=== PATIENT | male | born 1965 | race Caucasian/White ===

== ENCOUNTER 2020-09-18 15:43 | Inpatient (IN) | payer OTHER, BC ==
[2020-09-18] MEDS ORDERED: Senokot S 8.6-50 MG TAB PO PRN (17:55)
[2020-09-18] MEDS ORDERED: Ibuprofen 400 MG TAB PO PRN (17:59)
[2020-09-18] MEDS: Acetaminophen 325 MG TAB PO SCH ×2 (18:14→23:40)
[2020-09-18] MEDS: traMADol HCl 50 MG TAB PO PRN (18:55)
[2020-09-18] MEDS: Pregabalin 75 MG CAP PO SCH (20:33)
[2020-09-18] MEDS: Cyclobenzaprine 10 MG TAB PO PRN (23:45)
[2020-09-19] MEDS: traMADol HCl 50 MG TAB PO PRN ×3 (01:38→20:42)
[2020-09-19] MEDS: Acetaminophen 325 MG TAB PO SCH ×3 (05:33→17:44)
[2020-09-19] MEDS: Polyethylene Glycol 3350 17 GM Packet PO SCH (08:35)
[2020-09-19] MEDS: Pregabalin 75 MG CAP PO SCH ×2 (08:35→20:36)
[2020-09-19] MEDS: Triamterene/Hydrochlorothiazide 37.5 mg/25 mg Tablet PO SCH (08:36)
[2020-09-19] MEDS: Amlodipine 5 MG TAB PO SCH (08:36)
[2020-09-19] MEDS: Cyclobenzaprine 10 MG TAB PO PRN (11:58)
[2020-09-19] MEDS: Ibuprofen 400 MG TAB PO SCH ×2 (14:18→21:56)
[2020-09-20] MEDS: Acetaminophen 325 MG TAB PO SCH ×4 (00:32→17:51)
[2020-09-20] MEDS: traMADol HCl 50 MG TAB PO PRN ×3 (04:27→22:00)
[2020-09-20] MEDS: Ibuprofen 400 MG TAB PO SCH ×3 (05:45→21:59)
[2020-09-20] MEDS: Amlodipine 5 MG TAB PO SCH (08:44)
[2020-09-20] MEDS: Polyethylene Glycol 3350 17 GM Packet PO SCH (08:44)
[2020-09-20] MEDS: Pregabalin 75 MG CAP PO SCH ×2 (08:45→20:53)
[2020-09-20] MEDS: Triamterene/Hydrochlorothiazide 37.5 mg/25 mg Tablet PO SCH (08:45)
[2020-09-20] MEDS: TUMERIC 1000 MG PO SCH (08:46)
[2020-09-20] MEDS: MULTIVITAMIN TABLET PO SCH (08:46)
[2020-09-20] MEDS: METHYLFOLATE PO SCH (08:47)
[2020-09-20] MEDS: FISH OIL 1000 MG PO SCH (08:47)
[2020-09-20] MEDS: Cyclobenzaprine 10 MG TAB PO PRN (17:51)
[2020-09-21] MEDS: Acetaminophen 325 MG TAB PO SCH ×4 (00:49→17:52)
[2020-09-21] MEDS: Cyclobenzaprine 10 MG TAB PO PRN ×3 (03:12→22:10)
[2020-09-21] MEDS: traMADol HCl 50 MG TAB PO PRN ×3 (04:23→17:56)
[2020-09-21] MEDS: Ibuprofen 400 MG TAB PO SCH ×3 (05:35→22:09)
[2020-09-21] MEDS: Triamterene/Hydrochlorothiazide 37.5 mg/25 mg Tablet PO SCH (08:17)
[2020-09-21] MEDS: Amlodipine 5 MG TAB PO SCH (08:17)
[2020-09-21] MEDS: Pregabalin 75 MG CAP PO SCH ×2 (08:18→20:31)
[2020-09-21] MEDS: METHYLFOLATE PO SCH (09:28)
[2020-09-21] MEDS: FISH OIL 1000 MG PO SCH (09:28)
[2020-09-21] MEDS: MULTIVITAMIN TABLET PO SCH (09:29)
[2020-09-21] MEDS: TUMERIC 1000 MG PO SCH (09:29)
[2020-09-21] MEDS: Polyethylene Glycol 3350 17 GM Packet PO SCH (09:29)
[2020-09-22] MEDS: Acetaminophen 325 MG TAB PO SCH ×4 (00:48→17:10)
[2020-09-22] MEDS: traMADol HCl 50 MG TAB PO PRN ×3 (00:49→22:24)
[2020-09-22] MEDS: Ibuprofen 400 MG TAB PO SCH ×3 (05:46→22:23)
[2020-09-22] MEDS: Cyclobenzaprine 10 MG TAB PO PRN ×2 (08:39→16:19)
[2020-09-22] MEDS: Amlodipine 5 MG TAB PO SCH (08:39)
[2020-09-22] MEDS: Pregabalin 75 MG CAP PO SCH ×2 (08:39→20:38)
[2020-09-22] MEDS: Triamterene/Hydrochlorothiazide 37.5 mg/25 mg Tablet PO SCH (08:40)
[2020-09-22] MEDS: Polyethylene Glycol 3350 17 GM Packet PO SCH (08:40)
[2020-09-22] MEDS: FISH OIL 1000 MG PO SCH (08:47)
[2020-09-22] MEDS: METHYLFOLATE PO SCH (08:48)
[2020-09-22] MEDS: MULTIVITAMIN TABLET PO SCH (08:49)
[2020-09-22] MEDS: TUMERIC 1000 MG PO SCH (08:49)
[2020-09-23] MEDS: Cyclobenzaprine 10 MG TAB PO PRN ×2 (00:26→08:01)
[2020-09-23] MEDS: Acetaminophen 325 MG TAB PO SCH ×4 (00:26→17:10)
[2020-09-23] MEDS: Ibuprofen 400 MG TAB PO SCH ×3 (05:30→22:34)
[2020-09-23] MEDS: Pregabalin 75 MG CAP PO SCH ×2 (08:01→20:22)
[2020-09-23] MEDS: Polyethylene Glycol 3350 17 GM Packet PO SCH (08:02)
[2020-09-23] MEDS: Amlodipine 5 MG TAB PO SCH (08:02)
[2020-09-23] MEDS: TUMERIC 1000 MG PO SCH (08:09)
[2020-09-23] MEDS: FISH OIL 1000 MG PO SCH (08:09)
[2020-09-23] MEDS: METHYLFOLATE PO SCH (08:09)
[2020-09-23] MEDS: CETIRIZINE 10 MG PO SCH (08:10)
[2020-09-23] MEDS: MULTIVITAMIN TABLET PO SCH (08:10)
[2020-09-23] MEDS: Triamterene/Hydrochlorothiazide 37.5 mg/25 mg Tablet PO SCH (08:12)
[2020-09-23] MEDS: traMADol HCl 50 MG TAB PO PRN ×2 (09:53→17:16)
[2020-09-24] MEDS: Acetaminophen 325 MG TAB PO SCH ×4 (00:41→17:37)
[2020-09-24] MEDS: Cyclobenzaprine 10 MG TAB PO PRN (00:41)
[2020-09-24] MEDS: traMADol HCl 50 MG TAB PO PRN ×3 (00:42→21:31)
[2020-09-24] MEDS: Ibuprofen 400 MG TAB PO SCH ×3 (05:35→21:30)
[2020-09-24] MEDS: Triamterene/Hydrochlorothiazide 37.5 mg/25 mg Tablet PO SCH ×2 (08:21→08:22)
[2020-09-24] MEDS: Pregabalin 75 MG CAP PO SCH ×2 (08:21→20:03)
[2020-09-24] MEDS: Polyethylene Glycol 3350 17 GM Packet PO SCH (08:22)
[2020-09-24] MEDS: Amlodipine 5 MG TAB PO SCH (08:22)
[2020-09-24] MEDS: MULTIVITAMIN TABLET PO SCH (09:00)
[2020-09-24] MEDS: TUMERIC 1000 MG PO SCH (09:00)
[2020-09-24] MEDS: CETIRIZINE 10 MG PO SCH (09:00)
[2020-09-24] MEDS: METHYLFOLATE PO SCH (09:00)
[2020-09-24] MEDS: FISH OIL 1000 MG PO SCH (09:00)
[2020-09-25] MEDS: Ibuprofen 400 MG TAB PO SCH ×3 (05:24→22:44)
[2020-09-25] MEDS: Acetaminophen 325 MG TAB PO SCH ×4 (05:24→17:41)
[2020-09-25] MEDS: Pregabalin 75 MG CAP PO SCH ×2 (08:16→20:18)
[2020-09-25] MEDS: Polyethylene Glycol 3350 17 GM Packet PO SCH (08:17)
[2020-09-25] MEDS: Amlodipine 5 MG TAB PO SCH (08:17)
[2020-09-25] MEDS: traMADol HCl 50 MG TAB PO PRN ×2 (08:20→22:40)
[2020-09-25] MEDS: Cyclobenzaprine 10 MG TAB PO PRN ×2 (08:21)
[2020-09-25] MEDS: CETIRIZINE 10 MG PO SCH (08:21)
[2020-09-25] MEDS: MULTIVITAMIN TABLET PO SCH (08:21)
[2020-09-25] MEDS: FISH OIL 1000 MG PO SCH (08:21)
[2020-09-25] MEDS: TUMERIC 1000 MG PO SCH (08:21)
[2020-09-25] MEDS: METHYLFOLATE PO SCH (08:21)
[2020-09-25 09:33] VITALS: BMI 26.6
[2020-09-26] MEDS: Acetaminophen 325 MG TAB PO SCH ×4 (00:10→18:14)
[2020-09-26] MEDS: Cyclobenzaprine 10 MG TAB PO PRN ×3 (00:10→22:13)
[2020-09-26] MEDS: Ibuprofen 400 MG TAB PO SCH ×3 (06:12→22:12)
[2020-09-26] MEDS: traMADol HCl 50 MG TAB PO PRN ×2 (06:13→18:15)
[2020-09-26] MEDS: Triamterene/Hydrochlorothiazide 37.5 mg/25 mg Tablet PO SCH (08:04)
[2020-09-26] MEDS: Amlodipine 5 MG TAB PO SCH (08:04)
[2020-09-26] MEDS: CETIRIZINE 10 MG PO SCH (08:04)
[2020-09-26] MEDS: Pregabalin 75 MG CAP PO SCH ×2 (08:04→20:03)
[2020-09-26] MEDS: METHYLFOLATE PO SCH (08:04)
[2020-09-26] MEDS: TUMERIC 1000 MG PO SCH (08:05)
[2020-09-26] MEDS: MULTIVITAMIN TABLET PO SCH (08:05)
[2020-09-26] MEDS: FISH OIL 1000 MG PO SCH (08:05)
[2020-09-26] MEDS: Polyethylene Glycol 3350 17 GM Packet PO SCH (08:06)
[2020-09-26] MEDS ORDERED: traMADol HCl 50 MG TAB PO SCH (11:00)
[2020-09-27] MEDS: traMADol HCl 50 MG TAB PO PRN ×2 (00:11→22:17)
[2020-09-27] MEDS: Acetaminophen 325 MG TAB PO SCH ×3 (00:11→13:13)
[2020-09-27] MEDS: Ibuprofen 400 MG TAB PO SCH (05:29)
[2020-09-27] MEDS: Pregabalin 75 MG CAP PO SCH (08:46)
[2020-09-27] MEDS: TUMERIC 1000 MG PO SCH (08:47)
[2020-09-27] MEDS: Amlodipine 5 MG TAB PO SCH (08:47)
[2020-09-27] MEDS: Triamterene/Hydrochlorothiazide 37.5 mg/25 mg Tablet PO SCH (08:47)
[2020-09-27] MEDS: METHYLFOLATE PO SCH (08:48)
[2020-09-27] MEDS: Polyethylene Glycol 3350 17 GM Packet PO SCH (08:48)
[2020-09-27] MEDS: MULTIVITAMIN TABLET PO SCH (08:48)
[2020-09-27] MEDS: CETIRIZINE 10 MG PO SCH (08:48)
[2020-09-27] MEDS: FISH OIL 1000 MG PO SCH (08:49)
[2020-09-27] MEDS ORDERED: Acetaminophen 325 MG TAB PO PRN (12:32)
[2020-09-27] MEDS ORDERED: Ibuprofen 400 MG TAB PO PRN (12:33)
[2020-09-27] MEDS: Cyclobenzaprine 10 MG TAB PO PRN (22:18)
[2020-09-28] MEDS: traMADol HCl 50 MG TAB PO PRN ×2 (04:20→22:00)
[2020-09-28] MEDS: Polyethylene Glycol 3350 17 GM Packet PO SCH (08:32)
[2020-09-28] MEDS: Triamterene/Hydrochlorothiazide 37.5 mg/25 mg Tablet PO SCH (08:32)
[2020-09-28] MEDS: Cyclobenzaprine 10 MG TAB PO PRN ×2 (08:33→22:00)
[2020-09-28] MEDS: Amlodipine 5 MG TAB PO SCH (08:33)
[2020-09-28] MEDS: FISH OIL 1000 MG PO SCH (08:35)
[2020-09-28] MEDS: METHYLFOLATE PO SCH (08:36)
[2020-09-28] MEDS: CETIRIZINE 10 MG PO SCH (08:36)
[2020-09-28] MEDS: MULTIVITAMIN TABLET PO SCH (08:37)
[2020-09-28] MEDS: TUMERIC 1000 MG PO SCH (08:37)
[2020-09-28] MEDS ORDERED: Pregabalin 75 MG CAP PO SCH (09:00)
[2020-09-28] MEDS: Pregabalin 75 MG CAP PO SCH ×2 (19:40→20:21)
[2020-09-28] MEDS: Acetaminophen 325 MG TAB PO PRN (19:41)
[2020-09-29] MEDS: traMADol HCl 50 MG TAB PO PRN ×2 (05:36→22:00)
[2020-09-29] MEDS: Cyclobenzaprine 10 MG TAB PO PRN ×2 (05:36→22:00)
[2020-09-29] MEDS: Amlodipine 5 MG TAB PO SCH (08:40)
[2020-09-29] MEDS: METHYLFOLATE PO SCH (08:40)
[2020-09-29] MEDS: Triamterene/Hydrochlorothiazide 37.5 mg/25 mg Tablet PO SCH (08:40)
[2020-09-29] MEDS: TUMERIC 1000 MG PO SCH (08:41)
[2020-09-29] MEDS: CETIRIZINE 10 MG PO SCH (08:41)
[2020-09-29] MEDS: FISH OIL 1000 MG PO SCH (08:41)
[2020-09-29] MEDS: Polyethylene Glycol 3350 17 GM Packet PO SCH (08:42)
[2020-09-29] MEDS: MULTIVITAMIN TABLET PO SCH (08:42)
[2020-09-29] MEDS: Acetaminophen 325 MG TAB PO PRN (14:02)
[2020-09-29] MEDS: Pregabalin 75 MG CAP PO SCH (21:02)
[2020-09-30] MEDS: traMADol HCl 50 MG TAB PO PRN ×3 (04:34→21:31)
[2020-09-30] MEDS: TUMERIC 1000 MG PO SCH (07:54)
[2020-09-30] MEDS: CETIRIZINE 10 MG PO SCH (07:54)
[2020-09-30] MEDS: MULTIVITAMIN TABLET PO SCH (07:54)
[2020-09-30] MEDS: FISH OIL 1000 MG PO SCH (07:54)
[2020-09-30] MEDS: METHYLFOLATE PO SCH (07:54)
[2020-09-30] MEDS: Amlodipine 5 MG TAB PO SCH (07:55)
[2020-09-30] MEDS: Triamterene/Hydrochlorothiazide 37.5 mg/25 mg Tablet PO SCH (07:55)
[2020-09-30] MEDS: Polyethylene Glycol 3350 17 GM Packet PO SCH (07:56)
[2020-09-30] MEDS: Pregabalin 75 MG CAP PO SCH (21:30)
[2020-09-30] MEDS: Cyclobenzaprine 10 MG TAB PO PRN (21:31)
[2020-10-01] MEDS: Polyethylene Glycol 3350 17 GM Packet PO SCH (07:55)
[2020-10-01] MEDS: traMADol HCl 50 MG TAB PO PRN ×2 (07:56→22:49)
[2020-10-01] MEDS: Triamterene/Hydrochlorothiazide 37.5 mg/25 mg Tablet PO SCH (07:57)
[2020-10-01] MEDS: Amlodipine 5 MG TAB PO SCH (07:57)
[2020-10-01] MEDS: METHYLFOLATE PO SCH (08:01)
[2020-10-01] MEDS: FISH OIL 1000 MG PO SCH (08:01)
[2020-10-01] MEDS: CETIRIZINE 10 MG PO SCH (08:01)
[2020-10-01] MEDS: MULTIVITAMIN TABLET PO SCH (08:01)
[2020-10-01] MEDS: TUMERIC 1000 MG PO SCH (08:02)
[2020-10-01] MEDS: Pregabalin 75 MG CAP PO SCH (20:37)
[2020-10-01] MEDS: Cyclobenzaprine 10 MG TAB PO PRN (22:48)
[2020-10-02] MEDS: traMADol HCl 50 MG TAB PO PRN ×2 (05:47→21:55)
[2020-10-02] MEDS: Triamterene/Hydrochlorothiazide 37.5 mg/25 mg Tablet PO SCH (08:14)
[2020-10-02] MEDS: Amlodipine 5 MG TAB PO SCH (08:15)
[2020-10-02] MEDS: CETIRIZINE 10 MG PO SCH (08:19)
[2020-10-02] MEDS: MULTIVITAMIN TABLET PO SCH (08:19)
[2020-10-02] MEDS: FISH OIL 1000 MG PO SCH (08:19)
[2020-10-02] MEDS: Polyethylene Glycol 3350 17 GM Packet PO SCH (08:19)
[2020-10-02] MEDS: TUMERIC 1000 MG PO SCH (08:19)
[2020-10-02] MEDS: METHYLFOLATE PO SCH (08:19)
[2020-10-02] MEDS: Pregabalin 75 MG CAP PO SCH (21:54)
[2020-10-02] MEDS: Cyclobenzaprine 10 MG TAB PO PRN (21:55)
[2020-10-03] MEDS: Triamterene/Hydrochlorothiazide 37.5 mg/25 mg Tablet PO SCH (08:47)
[2020-10-03] MEDS: METHYLFOLATE PO SCH (08:47)
[2020-10-03] MEDS: Amlodipine 5 MG TAB PO SCH (08:47)
[2020-10-03] MEDS: CETIRIZINE 10 MG PO SCH (08:48)
[2020-10-03] MEDS: Polyethylene Glycol 3350 17 GM Packet PO SCH (08:48)
[2020-10-03] MEDS: FISH OIL 1000 MG PO SCH (08:48)
[2020-10-03] MEDS: TUMERIC 1000 MG PO SCH (08:48)
[2020-10-03] MEDS: MULTIVITAMIN TABLET PO SCH (08:48)
[2020-10-03 08:53] VITALS: BP 142/89; TEMP 98.6
[2020-10-03] MEDS ORDERED: Pregabalin 75 MG CAP PO SCH (21:00)
[2020-10-03] MEDS ORDERED: traMADol HCl 50 MG TAB PO SCH (21:00)
== END 2020-10-03 12:07 | disposition home or self-care (01) | DRG 561 ==
LOC: MADMS 15:43
PROVIDERS: ADMIT Family Medicine; ATTEND Family Medicine
DX: S22.41XD Multiple fractures of ribs, right side, subsequent encounter for fracture with routine healing (principal); I10 Essential (primary) hypertension; F17.210 Nicotine dependence, cigarettes, uncomplicated; V29.9XXD Motorcycle rider (driver) (passenger) injured in unspecified traffic accident, subsequent encounter; R53.81 Other malaise; S22.071D Stable burst fracture of T9-T10 vertebra, subsequent encounter for fracture with routine healing; Z72.89 Other problems related to lifestyle